=== PATIENT | female | born 1985 | race Two or more races ===

== ENCOUNTER 2017-01-18 13:13 | Emergency (ER) | payer MEDICAID, OTHER ==
[~2017-01-18] VITALS: Ht 157.5 cm; Wt 57.2 kg
[2017-01-18 13:58] VITALS: BP 112/73
--- NOTE | 2017-01-18 17:25 | NUR ---
Patient ambulated to bed 8.
--- NOTE | 2017-01-18 17:30 | NUR ---
31/F present to ED c/o umbilical region pain x 2 days with n/v/d yesterday but not today--feels bloated, describes as a cramping pain /10 no radiating. Patient states she was taking otc advil yesterday. AAOx4, PERRLA, breathing even and unlabored. ERMD notified of patient status.
--- NOTE | 2017-01-18 17:33 | NUR ---
Patient being evaluated by physician at bedside.
[2017-01-18] MEDS ORDERED: NACL 0.9% 1,000 ML IV ONE ×2 (17:40→19:35)
--- NOTE | 2017-01-18 18:29 | NUR ---
PT RESTING. VSS; PATIENT POSITIONED FOR COMFORT; HOB ELEVATED; BEDRAILS UP X2; BED DOWN. ER MD MADE AWARE OF PT STATUS.
--- NOTE | 2017-01-18 19:19 | NUR ---
PT TAKEN TO CT
--- NOTE | 2017-01-18 19:28 | NUR ---
Pt report given to RN CLARIZE. Transfer of care at this time.
--- NOTE | 2017-01-18 19:31 | NUR ---
PT RETURN FROM CT
--- NOTE | 2017-01-18 19:33 | NUR ---
Dr. Al evaluating patient at bedside.
[2017-01-18] MEDS ORDERED: MORPHINE SULFATE 4 MG/ML SYR IVP ONE (19:35)
--- NOTE | 2017-01-18 21:02 | NUR ---
PT TAKEN TO ULTRASOUND
--- NOTE | 2017-01-18 21:12 | NUR ---
PT RETURN TO BED 8
[2017-01-18] MEDS ORDERED: AZITHROMYCIN 250 MG TAB PO ONE (21:50)
[2017-01-18] MEDS ORDERED: cefTRIAXone 250 MG VIAL ONE (22:04)
--- NOTE | 2017-01-18 23:10 | NUR ---
Patient discharged with v/s stable. Written and verbal after care instructions given and explained. Patient alert, oriented and verbalized understanding of instructions. Ambulatory with steady gait. All questions addressed prior to discharge. ID band removed. Patient advised to follow up with PMD. Rx of DOXYCYCLINE 100 MG, CIPRO 500 MG, NORCO 5/325 MG given. Patient educated on indication of medication including possible reaction and side effects. Opportunity to ask questions provided and answered.
[2017-01-19 01:17] VITALS: BP 111/63
== END 2017-01-18 23:10 | disposition home or self-care (01) ==
LOC: MED 13:13
DX: N73.9 Female pelvic inflammatory disease, unspecified (principal); D72.829 Elevated white blood cell count, unspecified; F17.210 Nicotine dependence, cigarettes, uncomplicated
CPT/HCPCS: 36415; 74177; 76856; 80053; 80076; 81001; 81025; 83605; 83690; 85025; 87070; 87210; 87491; 96361; 96365; 96375; 99285; J0696; J2270; J7030; J7060; Q9967

== ENCOUNTER 2020-05-29 17:51 | Emergency (ER) | payer OTHER ==
[~2020-05-29] VITALS: Ht 154.9 cm; Wt 63.5 kg
[2020-05-29 17:58] VITALS: BP 132/75
--- NOTE | 2020-05-29 18:05 | NUR ---
PT AMBULATED TO ER BED 02
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
--- NOTE | 2020-05-29 18:13 | NUR ---
PORTABLE XRAY AT BEDSIDE
--- NOTE | 2020-05-29 18:27 | NUR ---
DR. EUGENE EVALUATING PT AT BEDSIDE
--- NOTE | 2020-05-29 18:45 | NUR ---
PT LEFT PINKY TOE MARISELA TAPED TO FOURTH DIGIT AND LEFT FOOT PLACED IN ORTHO SHOE PER ERMD
--- NOTE | 2020-05-29 18:56 | NUR ---
Patient discharged with v/s stable. Written and verbal after care instructions given and explained. Patient alert, oriented and verbalized understanding of instructions. Ambulatory with steady gait. All questions addressed prior to discharge. ID band removed. Patient advised to follow up with PMD. Rx of MOTRIN given. Patient educated on indication of medication including possible reaction and side effects. Opportunity to ask questions provided and answered. PT DOES NOT WANT TO WAIT FOR CD IMAGES. WILL COME BACK ANOTHER DAY AND REQUEST FROM [facility].
[2020-05-29 18:58] VITALS: BP 132/75
== END 2020-05-29 18:56 | disposition home or self-care (01) ==
LOC: MED 17:51
DX: S92.512A Displaced fracture of proximal phalanx of left lesser toe(s), initial encounter for closed fracture (principal); F17.210 Nicotine dependence, cigarettes, uncomplicated; X58.XXXA Exposure to other specified factors, initial encounter; Y93.89 Activity, other specified; Y92.89 Other specified places as the place of occurrence of the external cause; Y99.8 Other external cause status
CPT/HCPCS: 73630; 99283; Q0092

== ENCOUNTER 2023-01-07 18:40 | Emergency (ER) | payer OTHER ==
[~2023-01-07] VITALS: Ht 154.9 cm; Wt 59.0 kg
[2023-01-07 19:21] VITALS: BP 136/72
[2023-01-07] MEDS ORDERED: IBUP-1842 PO (20:26)
--- NOTE | 2023-01-07 20:45 | NUR ---
Patient discharged with v/s stable. Written and verbal after care instructions given and explained. Patient verbalized understanding. Ambulatory with steady gait. All questions addressed prior to discharge. Advised to follow up with PMD. Addendum: 01/07/23 at 2054 by [facility]
== END 2023-01-07 20:45 | disposition home or self-care (01) ==
LOC: MED 18:40
DX: S00.83XA Contusion of other part of head, initial encounter (principal); M25.531 Pain in right wrist; Z79.1 Long term (current) use of non-steroidal anti-inflammatories (NSAID); V43.52XA Car driver injured in collision with other type car in traffic accident, initial encounter; Y93.89 Activity, other specified; Y92.410 Unspecified street and highway as the place of occurrence of the external cause; Y99.8 Other external cause status
CPT/HCPCS: 73110; 99283

== ENCOUNTER 2023-01-11 17:52 | Emergency (ER) | payer OTHER ==
[~2023-01-11] VITALS: Ht 154.9 cm; Wt 60.8 kg
[~2023-01-11 17:52] MED LIST: IBUP-1842 PO
[2023-01-11 18:04] VITALS: BP 125/85
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
--- NOTE | 2023-01-11 19:50 | NUR ---
MD Simentals examining pt at this time.
[2023-01-11] MEDS ORDERED: LID5T TP (19:59)
[2023-01-11] MEDS ORDERED: METH-1681 PO (19:59)
[2023-01-11 21:12] VITALS: BP 127/78
--- NOTE | 2023-01-11 21:12 | NUR ---
Patient discharged with v/s stable. Written and verbal after care instructions given and explained. Patient alert, oriented and verbalized understanding of instructions. All questions addressed prior to discharge. ID band removed. Patient advised to follow up with PMD. Rx of Lidocaine and Methocarbamol sent to preferred pharmacy. Patient educated on indication of medication including possible reaction and side effects. Opportunity to ask questions provided and answered.
== END 2023-01-11 21:12 | disposition home or self-care (01) ==
LOC: MED 17:52
DX: S13.4XXA Sprain of ligaments of cervical spine, initial encounter (principal); S80.12XA Contusion of left lower leg, initial encounter; Z79.899 Other long term (current) drug therapy; Z79.1 Long term (current) use of non-steroidal anti-inflammatories (NSAID); V89.2XXA Person injured in unspecified motor-vehicle accident, traffic, initial encounter; Y93.89 Activity, other specified; Y92.410 Unspecified street and highway as the place of occurrence of the external cause; Y99.8 Other external cause status
CPT/HCPCS: 99283

== ENCOUNTER 2023-01-25 15:18 | Emergency (ER) | payer OTHER ==
[~2023-01-25] VITALS: Ht 154.9 cm; Wt 63.0 kg
[~2023-01-25 15:18] MED LIST changes: +LID5T TP; +METH-1681 PO
[2023-01-25 15:26] VITALS: BP 129/78
[2023-01-25] MEDS ORDERED: KETOROLAC 30 MG/ML VIAL IM ONE (16:50)
[2023-01-25] MEDS ORDERED: SULF-58 PO (17:02)
[2023-01-25] MEDS ORDERED: NAPR-1704 PO (17:02)
[2023-01-25 17:20] VITALS: BP 129/78
--- NOTE | 2023-01-25 17:21 | NUR ---
Patient discharged with v/s stable. Written and verbal after care instructions given and explained. Patient alert, oriented and verbalized understanding of instructions. Ambulatory with steady gait. All questions addressed prior to discharge. ID band removed. Patient advised to follow up with PMD. Rx of bactrim and naproxen given. Patient educated on indication of medication including possible reaction and side effects. Opportunity to ask questions provided and answered.
== END 2023-01-25 17:20 | disposition home or self-care (01) ==
LOC: MED 15:18
DX: L03.116 Cellulitis of left lower limb (principal); Z79.899 Other long term (current) drug therapy
CPT/HCPCS: 96372; 99284; J1885